=== PATIENT | female | born 1980 | race Hispanic/Latino ===

== ENCOUNTER → 2024-11-02 | Outpatient (CLI) | payer OTHER | END | disposition home or self-care (01) | LOC: RAD 11:51 | PROVIDERS: ATTEND Nurse Practitioner Adult Health | DX: M18.0 Bilateral primary osteoarthritis of first carpometacarpal joints (principal); M25.531 Pain in right wrist; M25.532 Pain in left wrist; Z04.2 Encounter for examination and observation following work accident | CPT/HCPCS: 73110-LT; 73110-RT ==